=== PATIENT | male | born 1985 | race Caucasian/White ===

== ENCOUNTER 2022-06-06 12:48 | Emergency (ER) | payer OTHER ==
[2022-06-06] MEDS ORDERED: Diphtheria,Pertussis(Acell),Tetanus Vaccine 0.5 ML Syringe IM ONE (13:34)
[2022-06-06] MEDS ORDERED: Bacitracin Oint 1 GM U/D Packet TOP ONE (13:34)
[2022-06-06] MEDS ORDERED: Lidocaine 1% 5 ML VIAL INJECT ONE (13:41)
== END 2022-06-06 15:06 | disposition home or self-care (01) ==
LOC: JP.ED 12:48
DX: S91.312A Laceration without foreign body, left foot, initial encounter (principal); S91.112A Laceration without foreign body of left great toe without damage to nail, initial encounter; Z23 Encounter for immunization; Z79.899 Other long term (current) drug therapy; W29.3XXA Contact with powered garden and outdoor hand tools and machinery, initial encounter
CPT/HCPCS: 12002; 73660-26-TA; 73660-TA; 90471; 90715; 99283